=== PATIENT | male | born 1985 | race African-American/Black ===

== ENCOUNTER 2019-04-14 01:56 | Inpatient (IN) | payer MEDICAID ==
[~2019-04-14] VITALS: Ht 177.8 cm; Wt 82.8 kg
[~2019-04-14 01:56] MED LIST: ADV250 IH; ALBU17AE27 IH
[2019-04-14] MEDS ORDERED: LORazepam 1 MG TABLET PO PRN (03:15)
[2019-04-14] MEDS ORDERED: ZOLPIDEM TARTRATE 10 MG TABLET PO PRN (03:15)
[2019-04-14 04:50] VITALS: BP 137/71
[2019-04-14 08:22] VITALS: BP 110/45
[2019-04-14] MEDS ORDERED: MAG HYDROX/AL HYDROX/SIMETH ES 30 ML SUSPENSION UDCUP PO PRN ×2 (13:15→15:45)
[2019-04-14] MEDS ORDERED: LOPERAMIDE HCL 2 MG CAPSULE PO PRN ×2 (13:15→15:45)
[2019-04-14] MEDS ORDERED: HydrOXYzine PAMOATE 50 MG CAPSULE PO PRN (13:15)
[2019-04-14] MEDS ORDERED: GuaiFENesin/D-METHORPHAN [SUGAR-FREE] 200-20MG/10 ML SYRUP UDCUP PO PRN ×2 (13:15→15:45)
[2019-04-14] MEDS ORDERED: OLANZapine 5 MG RAPDIS TABLET PO PRN (13:15)
[2019-04-14] MEDS ORDERED: MAGNESIUM HYDROXIDE SUSPENSION 30 ML UDCUP PO PRN ×2 (13:15→15:45)
[2019-04-14] MEDS ORDERED: ACETAMINOPHEN 325 MG TABLET PO PRN ×2 (13:15→15:45)
[2019-04-14] MEDS ORDERED: TUBERCULIN, PURIFIED PROTEIN DERIVATIVE 5 TU/0.1 ML SYRINGE ID ONE (13:15)
[2019-04-14] MEDS ORDERED: PROMETHAZINE HCL 25 MG TABLET PO PRN (13:15)
[2019-04-14] MEDS ORDERED: IBUPROFEN 400 MG TABLET PO PRN (15:45)
[2019-04-14] MEDS ORDERED: DOCUSATE SODIUM 100 MG CAPSULE PO PRN (15:45)
[2019-04-14] MEDS ORDERED: PETROLATUM,WHITE 28 GM JELLY TP PRN (15:45)
[2019-04-14] MEDS ORDERED: ALBUTEROL SULFATE HFA 90 MCG/PUFF 8 GM INHALER IH PRN (15:45)
[2019-04-14] MEDS ORDERED: CloNIDine HCL 0.1 MG TABLET PO PRN (15:45)
[2019-04-14] MEDS ORDERED: ONDANSETRON HCL 4 MG TABLET PO PRN (15:45)
[2019-04-14] MEDS ORDERED: NICOTINE 14 MG/24 HOUR PATCH TD PRN (15:45)
[2019-04-14 16:04] VITALS: BP 122/61
[2019-04-14] MEDS: THIAMINE HCL 100 MG TABLET PO SCH (17:38)
[2019-04-14] MEDS ORDERED: THIA100T75 PO (19:03)
[2019-04-14] MEDS ORDERED: FOLI0.4T14 PO (19:03)
[2019-04-14] MEDS ORDERED: OLAN10TA6 PO (19:03)
[2019-04-14] MEDS ORDERED: MULT-723 PO (19:03)
[2019-04-14] MEDS ORDERED: FLUO-191 PO (19:03)
[2019-04-14] MEDS ORDERED: OLANZapine 5 MG RAPDIS TABLET PO SCH (21:00)
[2019-04-15 06:18] VITALS: BP 120/64
[2019-04-15 07:58] LABS: EOSINOPHILS % (AUTO) 3.3 % (1.0-6.0); HEMATOCRIT 40.9 % (41-53); HEMOGLOBIN 13.8 g/dL (13.5-17.5); LYMPHOCYTES # (AUTO) 2.5 K/uL (1.0-4.8); LYMPHOCYTES % (AUTO) 57.5 % (22.0-44.0); MEAN CORPUSCULAR HEMOGLOBIN 27.7 pg (26.0-34.0); MEAN CORPUSCULAR HGB CONC 33.6 G/dL (31.0-37.0); MEAN CORPUSCULAR VOLUME 82 fL (80-100); MONOCYTES # (AUTO) 0.5 K/uL (0.1-1.0); MONOCYTES % (AUTO) 12.3 % (2.0-9.0); NEUTROPHILS # (AUTO) 1.1 K/uL (1.8-7.7); NEUTROPHILS % (AUTO) 25.9 % (40.0-70.0); PLATELET COUNT (AUTO) 245 K/uL (150-450); RED BLOOD CELL COUNT(AUTO) 4.97 MIL/uL (4.50-5.90); RED CELL DISTRIBUTION WIDTH 15.8 % (11.5-14.5)
[2019-04-15 08:04] VITALS: BP 140/88
[2019-04-15 08:18] LABS: ALANINE AMINOTRANSFERASE 23 U/L (12-78); ALBUMIN 3.2 g/dL (3.4-5.0); ALKALINE PHOSPHATASE 70 U/L (46-116); ANION GAP 5 mmol/L (8-16); ASPARTATE AMINOTRANSFERASE 20 U/L (15-37); BILIRUBIN,TOTAL 0.2 mg/dL (0.1-1.0); CALCIUM, TOTAL 9.1 mg/dL (8.8-10.5); CARBON DIOXIDE 28 mmol/L (22-29); CHLORIDE 107 mmol/L (98-107); CHOL/HDL RATIO 2.4 (4.2-7.3); CHOLESTEROL 114 mg/dL (131-200); CREATININE 0.85 mg/dL (0.60-1.30); FREE T4 (FREE THYROXINE) 1.04 ng/dL (0.76-1.46); GLOMERULAR FILTR. RATE CALC > 60 mL/min (>60); GLUCOSE,RANDOM 107 mg/dL (70-110); HDL CHOLESTEROL 47 mg/dL (40-60); LDL CHOL (CALC.) 53 mg/dL (0-130); POTASSIUM 4.1 mmol/L (3.5-5.1); SODIUM SERUM 140 mmol/L (136-145); THYROID STIMULATING HORMONE 0.37 uIU/mL (0.36-3.74); TOTAL PROTEIN, SERUM 6.5 g/dL (6.4-8.2); TRIGLYCERIDES 69 mg/dL (15-150); UREA NITROGEN, BLOOD 10 mg/dL (7-18)
[2019-04-15] MEDS: FLUTICASONE/VILANTEROL 100-25 MCG/INH INHALER [14] IH SCH (08:24)
[2019-04-15] MEDS: FLUoxetine HCL 20 MG CAPSULE PO SCH (08:24)
[2019-04-15] MEDS: THIAMINE HCL 100 MG TABLET PO SCH ×2 (08:24→16:32)
[2019-04-15] MEDS: FOLIC ACID 1 MG TABLET PO SCH (08:24)
[2019-04-15] MEDS: MULTIVITAMINS WITH MINERALS, THERAPEUTIC TABLET PO SCH (08:24)
[2019-04-15 16:21] VITALS: BP 142/60
[2019-04-15] MEDS: OLANZapine 10 MG RAPDIS TABLET PO SCH (20:17)
[2019-04-16 06:20] VITALS: BP 124/79
[2019-04-16 08:33] VITALS: BP 139/64
[2019-04-16] MEDS: MULTIVITAMINS WITH MINERALS, THERAPEUTIC TABLET PO SCH (08:51)
[2019-04-16] MEDS: FOLIC ACID 1 MG TABLET PO SCH (08:51)
[2019-04-16] MEDS: FLUTICASONE/VILANTEROL 100-25 MCG/INH INHALER [14] IH SCH (08:51)
[2019-04-16] MEDS: THIAMINE HCL 100 MG TABLET PO SCH ×2 (08:51→16:59)
[2019-04-16] MEDS: FLUoxetine HCL 20 MG CAPSULE PO SCH (08:52)
[2019-04-16 16:10] VITALS: BP 142/84
[2019-04-16] MEDS: OLANZapine 10 MG RAPDIS TABLET PO SCH (21:00)
[2019-04-17 04:25] VITALS: BP 136/69
[2019-04-17] MEDS: FLUoxetine HCL 20 MG CAPSULE PO SCH (09:23)
[2019-04-17] MEDS: THIAMINE HCL 100 MG TABLET PO SCH ×2 (09:23→16:09)
[2019-04-17] MEDS: MULTIVITAMINS WITH MINERALS, THERAPEUTIC TABLET PO SCH (09:23)
[2019-04-17] MEDS: FOLIC ACID 1 MG TABLET PO SCH (09:23)
[2019-04-17] MEDS: FLUTICASONE/VILANTEROL 100-25 MCG/INH INHALER [14] IH SCH (09:30)
[2019-04-17 10:58] VITALS: BP 131/66
[2019-04-17] MEDS ORDERED: ALBU8HFA IH (15:35)
[2019-04-17] MEDS ORDERED: OLAN5TAB40 PO (15:35)
[2019-04-17 16:05] VITALS: BP 137/75
[2019-04-17] MEDS: OLANZapine 5 MG RAPDIS TABLET PO SCH (20:42)
[2019-04-18 06:15] VITALS: BP 121/76
[2019-04-18 08:33] VITALS: BP 109/66
[2019-04-18] MEDS: FLUTICASONE/VILANTEROL 100-25 MCG/INH INHALER [14] IH SCH (08:46)
[2019-04-18] MEDS: THIAMINE HCL 100 MG TABLET PO SCH ×2 (08:47→16:09)
[2019-04-18] MEDS: MULTIVITAMINS WITH MINERALS, THERAPEUTIC TABLET PO SCH (08:47)
[2019-04-18] MEDS: FLUoxetine HCL 20 MG CAPSULE PO SCH (08:47)
[2019-04-18] MEDS: FOLIC ACID 1 MG TABLET PO SCH (08:47)
[2019-04-18 15:59] VITALS: BP 133/79
[2019-04-18 16:05] VITALS: BP 133/79
[2019-04-18] MEDS: OLANZapine 5 MG RAPDIS TABLET PO SCH (20:07)
[2019-04-19 06:11] VITALS: BP 122/75
[2019-04-19] MEDS: FLUTICASONE/VILANTEROL 100-25 MCG/INH INHALER [14] IH SCH (08:36)
[2019-04-19 08:37] VITALS: BP 140/65
[2019-04-19] MEDS: FLUoxetine HCL 20 MG CAPSULE PO SCH (08:37)
[2019-04-19] MEDS: FOLIC ACID 1 MG TABLET PO SCH (08:37)
[2019-04-19] MEDS: THIAMINE HCL 100 MG TABLET PO SCH ×2 (08:37→16:53)
[2019-04-19] MEDS: MULTIVITAMINS WITH MINERALS, THERAPEUTIC TABLET PO SCH (08:37)
[2019-04-19 16:00] VITALS: BP 128/72
[2019-04-19] MEDS: OLANZapine 5 MG RAPDIS TABLET PO SCH (20:37)
[2019-04-20 04:52] VITALS: BP 134/79
[2019-04-20 08:00] VITALS: BP 122/70
[2019-04-20] MEDS: MULTIVITAMINS WITH MINERALS, THERAPEUTIC TABLET PO SCH (08:57)
[2019-04-20] MEDS: FLUTICASONE/VILANTEROL 100-25 MCG/INH INHALER [14] IH SCH (08:57)
[2019-04-20] MEDS: THIAMINE HCL 100 MG TABLET PO SCH ×2 (08:57→16:43)
[2019-04-20] MEDS: FOLIC ACID 1 MG TABLET PO SCH (08:57)
[2019-04-20] MEDS: FLUoxetine HCL 20 MG CAPSULE PO SCH (09:02)
[2019-04-20 16:05] VITALS: BP 141/91
[2019-04-20] MEDS: OLANZapine 5 MG RAPDIS TABLET PO SCH (20:18)
[2019-04-21 02:18] VITALS: BP 129/89
[2019-04-21 08:15] VITALS: BP 124/83
[2019-04-21] MEDS: THIAMINE HCL 100 MG TABLET PO SCH ×2 (08:34→16:07)
[2019-04-21] MEDS: FOLIC ACID 1 MG TABLET PO SCH (08:34)
[2019-04-21] MEDS: MULTIVITAMINS WITH MINERALS, THERAPEUTIC TABLET PO SCH (08:34)
[2019-04-21] MEDS: FLUTICASONE/VILANTEROL 100-25 MCG/INH INHALER [14] IH SCH (08:36)
[2019-04-21] MEDS: FLUoxetine HCL 20 MG CAPSULE PO SCH (08:40)
[2019-04-21 16:00] VITALS: BP 135/67
[2019-04-21] MEDS ORDERED: TUBERCULIN, PURIFIED PROTEIN DERIVATIVE 5 TU/0.1 ML SYRINGE ID ONE (16:15)
[2019-04-21] MEDS ORDERED: OLANZapine 10 MG RAPDIS TABLET PO SCH (21:00)
[2019-04-22 01:32] VITALS: BP 138/90
[2019-04-22 08:39] VITALS: BP 130/80
[2019-04-22] MEDS: THIAMINE HCL 100 MG TABLET PO SCH (08:48)
[2019-04-22] MEDS: FLUoxetine HCL 20 MG CAPSULE PO SCH (08:48)
[2019-04-22] MEDS: FOLIC ACID 1 MG TABLET PO SCH (08:48)
[2019-04-22] MEDS: MULTIVITAMINS WITH MINERALS, THERAPEUTIC TABLET PO SCH (08:48)
[2019-04-22] MEDS: FLUTICASONE/VILANTEROL 100-25 MCG/INH INHALER [14] IH SCH (09:00)
[2019-04-22] MEDS ORDERED: FLUO-191 PO (13:44)
[2019-04-22] MEDS ORDERED: OLAN10TA22 PO (13:44)
[2019-04-22] MEDS ORDERED: NALT50TA PO (13:44)
[2019-04-22] MEDS ORDERED: FLUT1AER IH (14:28)
[2019-04-23] MEDS ORDERED: NALTREXONE HCL 50 MG TABLET PO SCH (09:00)
== END 2019-04-22 15:20 | disposition home or self-care (01) | DRG 750 ==
LOC: B3A 04:10
PROVIDERS: ADMIT Psychiatry & Neurology Psychiatry; ATTEND Psychiatry & Neurology Psychiatry
DX: F25.9 Schizoaffective disorder, unspecified (principal); Z91.19 Patient's noncompliance with other medical treatment and regimen; D72.819 Decreased white blood cell count, unspecified; F10.10 Alcohol abuse, uncomplicated; F17.210 Nicotine dependence, cigarettes, uncomplicated; F60.0 Paranoid personality disorder; J45.909 Unspecified asthma, uncomplicated
CPT/HCPCS: 83036; 84439; 84443; 86592

== ENCOUNTER 2019-05-01 17:40 | Inpatient (IN) | payer MEDICAID ==
[~2019-05-01] VITALS: Ht 177.8 cm; Wt 82.0 kg
[~2019-05-01 17:40] MED LIST changes: -ADV250 IH; -ALBU17AE27 IH; +FLUO-191 PO; +FLUT1AER IH; +NALT50TA PO; +OLAN10TA22 PO
[2019-05-02] MEDS ORDERED: LORazepam 2 MG TABLET PO PRN (00:45)
[2019-05-02] MEDS ORDERED: QUEtiapine FUMARATE 100 MG TABLET PO PRN (00:45)
[2019-05-02] MEDS ORDERED: ZOLPIDEM TARTRATE 10 MG TABLET PO PRN (00:45)
[2019-05-02 01:38] VITALS: BP 150/93
[2019-05-02] MEDS ORDERED: INFLUENZA VIRUS VACCINE QVS 2019-20 (3YR+)/PF 60 MCG/0.5 ML SYRINGE IM ONE (04:15)
[2019-05-02 08:30] VITALS: BP 149/89
[2019-05-02] MEDS ORDERED: ACETAMINOPHEN 325 MG TABLET PO PRN (15:00)
[2019-05-02] MEDS ORDERED: PETROLATUM,WHITE 28 GM JELLY TP PRN (15:00)
[2019-05-02] MEDS ORDERED: ONDANSETRON HCL 4 MG TABLET PO PRN (15:00)
[2019-05-02] MEDS ORDERED: MAG HYDROX/AL HYDROX/SIMETH ES 30 ML SUSPENSION UDCUP PO PRN (15:00)
[2019-05-02] MEDS ORDERED: NICOTINE 14 MG/24 HOUR PATCH TD PRN (15:00)
[2019-05-02] MEDS ORDERED: CloNIDine HCL 0.1 MG TABLET PO PRN (15:00)
[2019-05-02] MEDS ORDERED: ALBUTEROL SULFATE HFA 90 MCG/PUFF 8 GM INHALER IH PRN (15:00)
[2019-05-02] MEDS ORDERED: MAGNESIUM HYDROXIDE SUSPENSION 30 ML UDCUP PO PRN (15:00)
[2019-05-02] MEDS ORDERED: DOCUSATE SODIUM 100 MG CAPSULE PO PRN (15:00)
[2019-05-02] MEDS ORDERED: GuaiFENesin/D-METHORPHAN [SUGAR-FREE] 200-20MG/10 ML SYRUP UDCUP PO PRN (15:00)
[2019-05-02] MEDS ORDERED: LOPERAMIDE HCL 2 MG CAPSULE PO PRN (15:00)
[2019-05-02] MEDS ORDERED: IBUPROFEN 400 MG TABLET PO PRN (15:00)
[2019-05-02 16:00] VITALS: BP 136/66
[2019-05-03 06:44] VITALS: BP 118/62
[2019-05-03] MEDS: FLUoxetine HCL 20 MG CAPSULE PO SCH (08:58)
[2019-05-03] MEDS: FLUTICASONE/VILANTEROL 100-25 MCG/INH INHALER [14] IH SCH (08:59)
[2019-05-03 12:10] VITALS: BP 134/60
[2019-05-03 16:37] VITALS: BP 137/90
[2019-05-03] MEDS ORDERED: OLANZapine 10 MG TABLET PO SCH (21:00)
[2019-05-04 06:31] VITALS: BP 143/64
[2019-05-04] MEDS: FLUoxetine HCL 20 MG CAPSULE PO SCH (08:13)
[2019-05-04] MEDS: FLUTICASONE/VILANTEROL 100-25 MCG/INH INHALER [14] IH SCH (09:00)
[2019-05-04 09:06] VITALS: BP 139/69
[2019-05-04 16:06] VITALS: BP 137/74
[2019-05-04] MEDS: OLANZapine 7.5 MG TABLET PO SCH (20:18)
[2019-05-05 05:56] VITALS: BP 116/60
[2019-05-05 08:28] VITALS: BP 135/74
[2019-05-05] MEDS: FLUoxetine HCL 20 MG CAPSULE PO SCH (08:47)
[2019-05-05] MEDS: FLUTICASONE/VILANTEROL 100-25 MCG/INH INHALER [14] IH SCH (08:48)
[2019-05-05 16:05] VITALS: BP 130/66
[2019-05-05] MEDS: OLANZapine 7.5 MG TABLET PO SCH (20:26)
[2019-05-06 00:30] VITALS: BP 118/43
[2019-05-06] MEDS: FLUTICASONE/VILANTEROL 100-25 MCG/INH INHALER [14] IH SCH (08:34)
[2019-05-06] MEDS: FLUoxetine HCL 20 MG CAPSULE PO SCH (08:35)
[2019-05-06 08:57] VITALS: BP 132/66
[2019-05-06] MEDS ORDERED: TUBERCULIN, PURIFIED PROTEIN DERIVATIVE 5 TU/0.1 ML SYRINGE ID ONE (15:00)
[2019-05-06] MEDS ORDERED: FLUO-191 PO (18:05)
[2019-05-06] MEDS ORDERED: OLAN7.5T2 PO (18:05)
[2019-05-06 18:39] VITALS: BP 128/77
== END 2019-05-06 19:15 | disposition home or self-care (01) | DRG 750 ==
LOC: B2S 05-02 01:02
PROVIDERS: ADMIT Psychiatry & Neurology Psychiatry; ATTEND Psychiatry & Neurology Psychiatry
DX: F25.0 Schizoaffective disorder, bipolar type (principal); R45.851 Suicidal ideations; Z59.0 Homelessness; F10.10 Alcohol abuse, uncomplicated; F41.9 Anxiety disorder, unspecified; J44.9 Chronic obstructive pulmonary disease, unspecified; F19.10 Other psychoactive substance abuse, uncomplicated; Z56.0 Unemployment, unspecified
CPT/HCPCS: 87081

== ENCOUNTER 2019-05-15 10:28 | Inpatient (IN) | payer MEDICAID ==
[~2019-05-15] VITALS: Ht 177.8 cm; Wt 83.5 kg
[~2019-05-15 10:28] MED LIST changes: -FLUT1AER IH; -NALT50TA PO; -OLAN10TA22 PO; +OLAN7.5T2 PO
[2019-05-15 13:46] VITALS: BP 125/71
[2019-05-15 16:00] VITALS: BP 130/65
[2019-05-15] MEDS ORDERED: ZOLPIDEM TARTRATE 10 MG TABLET PO PRN (19:45)
[2019-05-15] MEDS ORDERED: LORazepam 2 MG TABLET PO PRN (19:45)
[2019-05-15] MEDS ORDERED: HALOPERIDOL 5 MG TABLET PO PRN (19:45)
[2019-05-16 04:02] VITALS: BP 144/72
[2019-05-16 08:43] VITALS: BP 144/81
[2019-05-16 16:30] VITALS: BP 133/99
[2019-05-16] MEDS: FLUoxetine HCL 20 MG CAPSULE PO SCH (20:06)
[2019-05-16] MEDS: OLANZapine 5 MG TABLET PO SCH (20:06)
[2019-05-17 05:36] VITALS: BP 138/91
[2019-05-17 08:13] VITALS: BP 134/63
[2019-05-17] MEDS: FLUoxetine HCL 20 MG CAPSULE PO SCH (09:00)
[2019-05-17] MEDS: OLANZapine 5 MG TABLET PO SCH (21:00)
[2019-05-18 00:18] VITALS: BP 123/91
[2019-05-18 07:29] LABS: BASOPHILS % (AUTO) 0.9 % (0.0-2.0); EOSINOPHILS % (AUTO) 2.5 % (1.0-6.0); HEMATOCRIT 41.6 % (41-53); HEMOGLOBIN 14.2 g/dL (13.5-17.5); LYMPHOCYTES # (AUTO) 2.9 K/uL (1.0-4.8); LYMPHOCYTES % (AUTO) 50.1 % (22.0-44.0); MEAN CORPUSCULAR HEMOGLOBIN 27.9 pg (26.0-34.0); MEAN CORPUSCULAR HGB CONC 34.3 G/dL (31.0-37.0); MEAN CORPUSCULAR VOLUME 82 fL (80-100); MONOCYTES # (AUTO) 0.5 K/uL (0.1-1.0); MONOCYTES % (AUTO) 9.3 % (2.0-9.0); NEUTROPHILS # (AUTO) 2.1 K/uL (1.8-7.7); NEUTROPHILS % (AUTO) 37.2 % (40.0-70.0); PLATELET COUNT (AUTO) 264 K/uL (150-450); RED CELL DISTRIBUTION WIDTH 16.2 % (11.5-14.5)
[2019-05-18 07:39] LABS: HEMOGLOBIN A1C 6.1 % (3.8-5.6)
[2019-05-18 07:56] LABS: ALANINE AMINOTRANSFERASE 61 U/L (12-78); ALBUMIN 3.6 g/dL (3.4-5.0); ALKALINE PHOSPHATASE 72 U/L (46-116); ANION GAP 8 mmol/L (8-16); ASPARTATE AMINOTRANSFERASE 37 U/L (15-37); BILIRUBIN,TOTAL 0.1 mg/dL (0.1-1.0); CARBON DIOXIDE 28 mmol/L (22-29); CHLORIDE 103 mmol/L (98-107); CHOL/HDL RATIO 2.7 (4.2-7.3); CHOLESTEROL 141 mg/dL (131-200); CREATININE 0.86 mg/dL (0.60-1.30); FREE T4 (FREE THYROXINE) 1.07 ng/dL (0.76-1.46); GLOMERULAR FILTR. RATE CALC > 60 mL/min (>60); GLUCOSE,RANDOM 88 mg/dL (70-110); HDL CHOLESTEROL 52 mg/dL (40-60); LDL CHOL (CALC.) 72 mg/dL (0-130); POTASSIUM 4.3 mmol/L (3.5-5.1); SODIUM SERUM 139 mmol/L (136-145); TOTAL PROTEIN, SERUM 6.6 g/dL (6.4-8.2); TRIGLYCERIDES 86 mg/dL (15-150); UREA NITROGEN, BLOOD 15 mg/dL (7-18)
[2019-05-18 08:00] VITALS: BP 131/72
[2019-05-18] MEDS: FLUoxetine HCL 20 MG CAPSULE PO SCH (09:00)
[2019-05-18 16:33] VITALS: BP 140/68
[2019-05-18] MEDS ORDERED: LOPERAMIDE HCL 2 MG CAPSULE PO PRN (20:00)
[2019-05-18] MEDS ORDERED: ACETAMINOPHEN 325 MG TABLET PO PRN (20:00)
[2019-05-18] MEDS ORDERED: OLANZapine 5 MG RAPDIS TABLET PO PRN (20:00)
[2019-05-18] MEDS ORDERED: TUBERCULIN, PURIFIED PROTEIN DERIVATIVE 5 TU/0.1 ML SYRINGE ID ONE (20:00)
[2019-05-18] MEDS ORDERED: MAGNESIUM HYDROXIDE SUSPENSION 30 ML UDCUP PO PRN (20:00)
[2019-05-18] MEDS ORDERED: MAG HYDROX/AL HYDROX/SIMETH ES 30 ML SUSPENSION UDCUP PO PRN (20:00)
[2019-05-18] MEDS ORDERED: GuaiFENesin/D-METHORPHAN [SUGAR-FREE] 200-20MG/10 ML SYRUP UDCUP PO PRN (20:00)
[2019-05-18] MEDS ORDERED: HydrOXYzine PAMOATE 50 MG CAPSULE PO PRN (20:00)
[2019-05-18] MEDS ORDERED: PROMETHAZINE HCL 25 MG TABLET PO PRN (20:00)
[2019-05-18] MEDS: OLANZapine 5 MG TABLET PO SCH (20:16)
[2019-05-19 01:21] VITALS: BP 139/79
[2019-05-19 08:11] VITALS: BP 131/68
[2019-05-19] MEDS: FLUoxetine HCL 20 MG CAPSULE PO SCH (08:54)
[2019-05-19] MEDS: MULTIVITAMINS WITH MINERALS, THERAPEUTIC TABLET PO SCH (08:54)
[2019-05-19] MEDS: THIAMINE HCL 100 MG TABLET PO SCH ×2 (08:54→16:13)
[2019-05-19] MEDS: FOLIC ACID 1 MG TABLET PO SCH (08:54)
[2019-05-19 16:12] VITALS: BP 141/84
[2019-05-19] MEDS ORDERED: OLANZapine 7.5 MG TABLET PO SCH (21:00)
[2019-05-20 00:25] VITALS: BP 146/79
[2019-05-20 08:48] VITALS: BP 151/84
[2019-05-20] MEDS: FOLIC ACID 1 MG TABLET PO SCH (09:00)
[2019-05-20] MEDS: MULTIVITAMINS WITH MINERALS, THERAPEUTIC TABLET PO SCH (09:00)
[2019-05-20] MEDS: THIAMINE HCL 100 MG TABLET PO SCH ×2 (09:00→16:19)
[2019-05-20] MEDS: FLUoxetine HCL 20 MG CAPSULE PO SCH (09:00)
[2019-05-20 16:12] VITALS: BP 129/77
[2019-05-20] MEDS: OLANZapine 10 MG TABLET PO SCH (20:33)
[2019-05-21 00:32] VITALS: BP 128/62
[2019-05-21] MEDS: MULTIVITAMINS WITH MINERALS, THERAPEUTIC TABLET PO SCH (08:43)
[2019-05-21] MEDS: FOLIC ACID 1 MG TABLET PO SCH (08:44)
[2019-05-21] MEDS: THIAMINE HCL 100 MG TABLET PO SCH ×2 (08:44→16:02)
[2019-05-21] MEDS: FLUoxetine HCL 20 MG CAPSULE PO SCH (08:44)
[2019-05-21] MEDS ORDERED: BuPROPion HCL XL 150 MG ER TABLET PO SCH (09:00)
[2019-05-21 09:22] VITALS: BP 140/83
[2019-05-21 17:40] VITALS: BP 157/80
[2019-05-21] MEDS: AmLODIPine BESYLATE 5 MG TABLET PO SCH (18:13)
[2019-05-21 18:45] VITALS: BP 136/79
[2019-05-21 19:26] VITALS: BP 136/79
[2019-05-21] MEDS: OLANZapine 10 MG TABLET PO SCH (20:28)
[2019-05-22 03:40] VITALS: BP 106/57
[2019-05-22] MEDS ORDERED: AMLO5TAB9 PO (07:40)
[2019-05-22] MEDS ORDERED: OLAN10TA3 PO (07:40)
[2019-05-22 08:10] VITALS: BP 138/76
[2019-05-22] MEDS ORDERED: POTASSIUM CHLORIDE 20 MEQ ER TABLET PO ONE (08:45)
[2019-05-22] MEDS: AmLODIPine BESYLATE 5 MG TABLET PO SCH (08:46)
[2019-05-22] MEDS: FOLIC ACID 1 MG TABLET PO SCH (08:46)
[2019-05-22] MEDS: MULTIVITAMINS WITH MINERALS, THERAPEUTIC TABLET PO SCH (08:47)
[2019-05-22] MEDS: THIAMINE HCL 100 MG TABLET PO SCH (08:47)
[2019-05-22] MEDS ORDERED: FLUoxetine HCL 20 MG CAPSULE PO SCH (09:00)
[2019-05-22] MEDS ORDERED: FLUO-191 PO (09:38)
[2019-05-22] MEDS ORDERED: NALT50TA PO (14:27)
== END 2019-05-22 15:10 | disposition home or self-care (01) | DRG 750 ==
LOC: B3A 13:02 → B2S 19:00
PROVIDERS: ADMIT Psychiatry & Neurology Psychiatry; ATTEND Psychiatry & Neurology Psychiatry
DX: F25.0 Schizoaffective disorder, bipolar type (principal); R45.851 Suicidal ideations; Z59.0 Homelessness; J44.9 Chronic obstructive pulmonary disease, unspecified; K21.9 Gastro-esophageal reflux disease without esophagitis; Z91.14 Patient's other noncompliance with medication regimen; Z88.0 Allergy status to penicillin; Z88.5 Allergy status to narcotic agent
CPT/HCPCS: 83036; 84439; 84443; 87081; 93005

== ENCOUNTER 2019-09-16 18:15 | Inpatient (IN) | payer MEDICAID ==
[~2019-09-16] VITALS: Ht 177.8 cm; Wt 108.0 kg
[~2019-09-16 18:15] MED LIST changes: +AMLO-257 PO; +NALT50TA PO; +OLAN10TA3 PO; -OLAN7.5T2 PO
[2019-09-16] MEDS ORDERED: LISI-661 PO (18:21)
[2019-09-16] MEDS ORDERED: HALOPERIDOL 5 MG TABLET PO PRN (18:45)
[2019-09-16] MEDS ORDERED: ZOLPIDEM TARTRATE 10 MG TABLET PO PRN (18:45)
[2019-09-16] MEDS ORDERED: LORazepam 2 MG TABLET PO PRN (18:45)
[2019-09-16 18:47] VITALS: BP 131/85
[2019-09-16 19:22] VITALS: BP 140/86
[2019-09-16] MEDS ORDERED: PNEUMOCOCCAL VACCINE POLYVALENT 0.5 ML VIAL [PPSV23] IM ONE (19:45)
[2019-09-16 20:46] VITALS: BP 146/96
[2019-09-17 01:12] VITALS: BP 156/89
[2019-09-17] MEDS ORDERED: IBUPROFEN 600 MG TABLET PO PRN (06:15)
[2019-09-17] MEDS ORDERED: BACITRACIN 28.4 GM OINTMENT TP PRN (06:15)
[2019-09-17] MEDS ORDERED: DOCUSATE SODIUM 100 MG CAPSULE PO PRN (06:15)
[2019-09-17] MEDS ORDERED: ALBUTEROL SULFATE HFA 90 MCG/PUFF 8 GM INHALER IH PRN (06:15)
[2019-09-17] MEDS ORDERED: OMEPRAZOLE 20 MG CAPSULE PO PRN (06:15)
[2019-09-17] MEDS ORDERED: ONDANSETRON HCL 4 MG TABLET PO PRN (06:15)
[2019-09-17] MEDS ORDERED: ACETAMINOPHEN 325 MG TABLET PO PRN (06:15)
[2019-09-17] MEDS ORDERED: BENZOCAINE/MENTHOL LOZENGE MM PRN (06:15)
[2019-09-17] MEDS ORDERED: LOPERAMIDE HCL 2 MG CAPSULE PO PRN (06:15)
[2019-09-17] MEDS ORDERED: MAG HYDROX/AL HYDROX/SIMETH ES 30 ML SUSPENSION UDCUP PO PRN (06:15)
[2019-09-17] MEDS ORDERED: CloNIDine HCL 0.1 MG TABLET PO PRN (06:15)
[2019-09-17] MEDS ORDERED: PETROLATUM,WHITE 28 GM JELLY TP PRN (06:15)
[2019-09-17] MEDS ORDERED: MAGNESIUM HYDROXIDE SUSPENSION 30 ML UDCUP PO PRN (06:15)
[2019-09-17 08:00] LABS: BASOPHILS % (AUTO) 0.5 % (0.0-2.0); EOSINOPHILS % (AUTO) 0.1 % (1.0-6.0); HEMATOCRIT 41.5 % (41-53); HEMOGLOBIN 14.5 g/dL (13.5-17.5); LYMPHOCYTES # (AUTO) 2.2 K/uL (1.0-4.8); LYMPHOCYTES % (AUTO) 26.8 % (22.0-44.0); MEAN CORPUSCULAR HEMOGLOBIN 28.3 pg (26.0-34.0); MEAN CORPUSCULAR HGB CONC 34.9 G/dL (31.0-37.0); MEAN CORPUSCULAR VOLUME 81 fL (80-100); MONOCYTES # (AUTO) 0.6 K/uL (0.1-1.0); MONOCYTES % (AUTO) 6.9 % (2.0-9.0); NEUTROPHILS # (AUTO) 5.4 K/uL (1.8-7.7); NEUTROPHILS % (AUTO) 65.7 % (40.0-70.0); PLATELET COUNT (AUTO) 257 K/uL (150-450); RED BLOOD CELL COUNT(AUTO) 5.12 MIL/uL (4.50-5.90); RED CELL DISTRIBUTION WIDTH 16.5 % (11.5-14.5)
[2019-09-17 08:27] LABS: ALANINE AMINOTRANSFERASE 71 U/L (12-78); ALBUMIN 5.2 g/dL (3.4-5.0); ALKALINE PHOSPHATASE 58 U/L (46-116); ANION GAP 12 mmol/L (8-16); ASPARTATE AMINOTRANSFERASE 86 U/L (15-37); BILIRUBIN,TOTAL 0.6 mg/dL (0.1-1.0); CALCIUM, TOTAL 10.2 mg/dL (8.8-10.5); CARBON DIOXIDE 28 mmol/L (22-29); CHLORIDE 99 mmol/L (98-107); CHOL/HDL RATIO 2.6 (4.2-7.3); CHOLESTEROL 200 mg/dL (131-200); CREATININE 1.24 mg/dL (0.60-1.30); FREE T4 (FREE THYROXINE) 1.16 ng/dL (0.76-1.46); GLOMERULAR FILTR. RATE CALC > 60 mL/min (>60); GLUCOSE,RANDOM 107 mg/dL (70-110); HDL CHOLESTEROL 78 mg/dL (40-60); LDL CHOL (CALC.) 114 mg/dL (0-130); POTASSIUM 4.8 mmol/L (3.5-5.1); SODIUM SERUM 139 mmol/L (136-145); THYROID STIMULATING HORMONE 1.53 uIU/mL (0.36-3.74); TOTAL PROTEIN, SERUM 9.3 g/dL (6.4-8.2); TRIGLYCERIDES 41 mg/dL (15-150); UREA NITROGEN, BLOOD 23 mg/dL (7-18)
[2019-09-17] MEDS ORDERED: LISINOPRIL 20 MG TABLET PO SCH (09:00)
[2019-09-17] MEDS ORDERED: AmLODIPine BESYLATE 5 MG TABLET PO SCH (09:00)
[2019-09-17] MEDS ORDERED: LISINOPRIL 10 MG TABLET PO SCH (09:00)
[2019-09-17 09:49] VITALS: BP 129/101
[2019-09-17 16:09] VITALS: BP 132/74
[2019-09-17] MEDS: OLANZapine 10 MG TABLET PO SCH (20:05)
[2019-09-18 00:41] VITALS: BP 133/80
[2019-09-18 08:04] LABS: AMPHET/METH SCREEN,URINE POSITIVE (NEGATIVE); APPEARANCE,URINE TURBID (CLEAR); BARBITURATE SCREEN, URINE NEGATIVE (NEGATIVE); BENZODIAZEPINES SCREEN,URINE NEGATIVE (NEGATIVE); BILIRUBIN,URINE NEGATIVE (NEGATIVE); CANNABINOID SCREEN,URINE NEGATIVE (NEGATIVE); COCAINE SCREEN,URINE NEGATIVE (NEGATIVE); GLUCOSE, URINE (UA) NEGATIVE (NEGATIVE); KETONES,URINE TRACE mg/dL (NEGATIVE); LEUKOCYTE ESTERASE ,URINE NEGATIVE (NEGATIVE); METHADONE SCREEN, URINE NEGATIVE (NEGATIVE); NITRATE,URINE NEGATIVE (NEGATIVE); OCCULT BLOOD,URINE NEGATIVE (NEGATIVE); OPIATE SCREEN,URINE NEGATIVE (NEGATIVE); PH,URINE 5.5 (5.0-8.0); PROTEIN,URINE TRACE (NEGATIVE); UROBILINOGEN,URINE 0.2 mg/dL (<=1.0)
[2019-09-18 08:10] VITALS: BP 142/69
[2019-09-18 08:11] LABS: PHENCYCLIDINE SCREEN,URINE NEGATIVE (NEGATIVE)
[2019-09-18 08:16] LABS: AMORPHOUS SEDIMENT,UR Many /LPF (None Seen); BACTERIA,URINE None Seen /HPF (None Seen); RBC,URINE None Seen /HPF (0-2); SQUAMOUS EPITHELIAL CELL,UR None Seen /LPF (None Seen); WBC,URINE None Seen /HPF (0-5)
[2019-09-18] MEDS: METOPROLOL TARTRATE 25 MG TABLET PO SCH ×2 (08:25→16:34)
[2019-09-18] MEDS: LISINOPRIL 10 MG TABLET PO SCH (08:25)
[2019-09-18 16:32] VITALS: BP 112/63
[2019-09-18] MEDS: OLANZapine 10 MG TABLET PO SCH (20:09)
[2019-09-19 01:18] VITALS: BP 110/67
[2019-09-19 08:23] VITALS: BP 114/72
[2019-09-19] MEDS: LISINOPRIL 10 MG TABLET PO SCH (08:29)
[2019-09-19] MEDS: METOPROLOL TARTRATE 25 MG TABLET PO SCH ×2 (08:29→16:29)
[2019-09-19 17:31] VITALS: BP 124/72
[2019-09-19] MEDS: OLANZapine 10 MG TABLET PO SCH (20:54)
[2019-09-20 03:48] VITALS: BP 122/68
[2019-09-20] MEDS: LISINOPRIL 10 MG TABLET PO SCH (08:45)
[2019-09-20 09:20] VITALS: BP 128/72
[2019-09-20 17:40] VITALS: BP 120/68
[2019-09-20] MEDS: OLANZapine 10 MG TABLET PO SCH (20:06)
[2019-09-21 02:43] VITALS: BP 140/90
[2019-09-21] MEDS: LISINOPRIL 10 MG TABLET PO SCH (08:05)
[2019-09-21 08:50] VITALS: BP 149/77
== END 2019-09-21 14:16 | disposition home or self-care (01) | DRG 885 ==
LOC: B2S 18:44
PROVIDERS: ADMIT Psychiatry & Neurology Psychiatry; ATTEND Psychiatry & Neurology Psychiatry
DX: F25.9 Schizoaffective disorder, unspecified (principal); R45.851 Suicidal ideations; F15.10 Other stimulant abuse, uncomplicated; G47.00 Insomnia, unspecified; K59.00 Constipation, unspecified; F41.9 Anxiety disorder, unspecified; Z03.818 Encounter for observation for suspected exposure to other biological agents ruled out
CPT/HCPCS: 80307; 83036; 84439; 84443

== ENCOUNTER 2019-10-20 01:25 | Inpatient (IN) | payer MEDICAID ==
[~2019-10-20] VITALS: Ht 177.8 cm; Wt 88.9 kg
[~2019-10-20 01:25] MED LIST changes: -AMLO-257 PO; -FLUO-191 PO; +LISI-661 PO; -NALT50TA PO
[2019-10-20] MEDS ORDERED: HALOPERIDOL 5 MG TABLET PO PRN (01:45)
[2019-10-20] MEDS ORDERED: LORazepam 2 MG TABLET PO PRN (01:45)
[2019-10-20 02:25] VITALS: BP 125/63
[2019-10-20] MEDS ORDERED: MAG HYDROX/AL HYDROX/SIMETH ES 30 ML SUSPENSION UDCUP PO PRN (07:15)
[2019-10-20] MEDS ORDERED: OMEPRAZOLE 20 MG CAPSULE PO PRN (07:15)
[2019-10-20] MEDS ORDERED: MAGNESIUM HYDROXIDE SUSPENSION 30 ML UDCUP PO PRN (07:15)
[2019-10-20] MEDS ORDERED: LOPERAMIDE HCL 2 MG CAPSULE PO PRN (07:15)
[2019-10-20] MEDS ORDERED: ACETAMINOPHEN 325 MG TABLET PO PRN (07:15)
[2019-10-20] MEDS ORDERED: CloNIDine HCL 0.1 MG TABLET PO PRN (07:15)
[2019-10-20] MEDS ORDERED: PETROLATUM,WHITE 28 GM JELLY TP PRN (07:15)
[2019-10-20] MEDS ORDERED: BACITRACIN 28 GM OINTMENT TP PRN (07:15)
[2019-10-20] MEDS ORDERED: ONDANSETRON HCL 4 MG TABLET PO PRN (07:15)
[2019-10-20] MEDS ORDERED: IBUPROFEN 600 MG TABLET PO PRN (07:15)
[2019-10-20] MEDS ORDERED: DOCUSATE SODIUM 100 MG CAPSULE PO PRN (07:15)
[2019-10-20] MEDS ORDERED: ALBUTEROL SULFATE HFA 90 MCG/PUFF 8 GM INHALER IH PRN (07:15)
[2019-10-20] MEDS ORDERED: BENZOCAINE/MENTHOL LOZENGE PO PRN (07:15)
[2019-10-20 08:18] VITALS: BP 115/74
[2019-10-20] MEDS: LISINOPRIL 10 MG TABLET PO SCH (09:34)
[2019-10-20 16:22] VITALS: BP 124/75
[2019-10-20] MEDS: OLANZapine 10 MG TABLET PO SCH (20:35)
[2019-10-20] MEDS: ZOLPIDEM TARTRATE 10 MG TABLET PO PRN (20:35)
[2019-10-21 06:46] VITALS: BP 117/66
[2019-10-21 08:23] VITALS: BP 130/71
[2019-10-21] MEDS: LISINOPRIL 10 MG TABLET PO SCH (08:46)
[2019-10-21] MEDS: CITALOPRAM HYDROBROMIDE 20 MG TABLET PO SCH (08:46)
[2019-10-21 16:27] VITALS: BP 116/69
[2019-10-21] MEDS: ZOLPIDEM TARTRATE 10 MG TABLET PO PRN (20:50)
[2019-10-21] MEDS: OLANZapine 10 MG TABLET PO SCH (20:50)
[2019-10-22 02:32] VITALS: BP 110/70
[2019-10-22 08:40] VITALS: BP 117/70
[2019-10-22] MEDS: CITALOPRAM HYDROBROMIDE 20 MG TABLET PO SCH (08:49)
[2019-10-22] MEDS: LISINOPRIL 10 MG TABLET PO SCH (08:49)
[2019-10-22 09:06] LABS: APPEARANCE,URINE CLEAR (CLEAR); BILIRUBIN,URINE NEGATIVE (NEGATIVE); GLUCOSE, URINE (UA) NEGATIVE (NEGATIVE); KETONES,URINE NEGATIVE (NEGATIVE); LEUKOCYTE ESTERASE ,URINE NEGATIVE (NEGATIVE); NITRATE,URINE NEGATIVE (NEGATIVE); OCCULT BLOOD,URINE NEGATIVE (NEGATIVE); PH,URINE 5.5 (5.0-8.0); PROTEIN,URINE NEGATIVE (NEGATIVE); UROBILINOGEN,URINE 0.2 mg/dL (<=1.0)
[2019-10-22 09:16] LABS: AMPHET/METH SCREEN,URINE NEGATIVE (NEGATIVE); BARBITURATE SCREEN, URINE NEGATIVE (NEGATIVE); BENZODIAZEPINES SCREEN,URINE NEGATIVE (NEGATIVE); CANNABINOID SCREEN,URINE NEGATIVE (NEGATIVE); COCAINE SCREEN,URINE NEGATIVE (NEGATIVE); METHADONE SCREEN, URINE NEGATIVE (NEGATIVE); OPIATE SCREEN,URINE NEGATIVE (NEGATIVE)
[2019-10-22 09:18] LABS: PHENCYCLIDINE SCREEN,URINE NEGATIVE (NEGATIVE)
[2019-10-22 16:14] VITALS: BP 133/70
[2019-10-22] MEDS: ZOLPIDEM TARTRATE 10 MG TABLET PO PRN (20:18)
[2019-10-22] MEDS: OLANZapine 10 MG TABLET PO SCH (20:18)
[2019-10-23 01:36] VITALS: BP 134/93
[2019-10-23 08:18] LABS: BASOPHILS % (AUTO) 0.6 % (0.0-2.0); EOSINOPHILS % (AUTO) 3.3 % (1.0-6.0); HEMATOCRIT 39.7 % (41-53); HEMOGLOBIN 13.2 g/dL (13.5-17.5); LYMPHOCYTES # (AUTO) 2.7 K/uL (1.0-4.8); MEAN CORPUSCULAR HEMOGLOBIN 27.7 pg (26.0-34.0); MEAN CORPUSCULAR HGB CONC 33.2 G/dL (31.0-37.0); MEAN CORPUSCULAR VOLUME 84 fL (80-100); MONOCYTES # (AUTO) 0.6 K/uL (0.1-1.0); MONOCYTES % (AUTO) 10.6 % (2.0-9.0); NEUTROPHILS # (AUTO) 2.1 K/uL (1.8-7.7); NEUTROPHILS % (AUTO) 37.5 % (40.0-70.0); PLATELET COUNT (AUTO) 251 K/uL (150-450); RED BLOOD CELL COUNT(AUTO) 4.74 MIL/uL (4.50-5.90); RED CELL DISTRIBUTION WIDTH 15.6 % (11.5-14.5)
[2019-10-23] MEDS: LISINOPRIL 10 MG TABLET PO SCH (08:49)
[2019-10-23] MEDS: CITALOPRAM HYDROBROMIDE 20 MG TABLET PO SCH (08:49)
[2019-10-23 09:58] LABS: ALANINE AMINOTRANSFERASE 43 U/L (12-78); ALBUMIN 3.4 g/dL (3.4-5.0); ALKALINE PHOSPHATASE 56 U/L (46-116); ANION GAP 7 mmol/L (8-16); ASPARTATE AMINOTRANSFERASE 20 U/L (15-37); BILIRUBIN,TOTAL 0.1 mg/dL (0.1-1.0); CALCIUM, TOTAL 9.1 mg/dL (8.8-10.5); CARBON DIOXIDE 27 mmol/L (22-29); CHLORIDE 105 mmol/L (98-107); CHOL/HDL RATIO 2.6 (4.2-7.3); CHOLESTEROL 155 mg/dL (131-200); CREATININE 1.11 mg/dL (0.60-1.30); FREE T4 (FREE THYROXINE) 1.02 ng/dL (0.76-1.46); GLOMERULAR FILTR. RATE CALC > 60 mL/min (>60); GLUCOSE,RANDOM 148 mg/dL (70-110); HDL CHOLESTEROL 59 mg/dL (40-60); LDL CHOL (CALC.) 81 mg/dL (0-130); POTASSIUM 4.2 mmol/L (3.5-5.1); SODIUM SERUM 139 mmol/L (136-145); THYROID STIMULATING HORMONE 1.34 uIU/mL (0.36-3.74); TOTAL PROTEIN, SERUM 6.6 g/dL (6.4-8.2); TRIGLYCERIDES 75 mg/dL (15-150); UREA NITROGEN, BLOOD 18 mg/dL (7-18)
[2019-10-23 10:36] VITALS: BP 129/77
[2019-10-23 16:59] VITALS: BP 107/73
[2019-10-23] MEDS: OLANZapine 10 MG TABLET PO SCH (20:48)
[2019-10-24 05:49] VITALS: BP 115/71
[2019-10-24] MEDS: CITALOPRAM HYDROBROMIDE 20 MG TABLET PO SCH (08:39)
[2019-10-24] MEDS: LISINOPRIL 10 MG TABLET PO SCH (08:39)
[2019-10-24 09:06] VITALS: BP 114/59
[2019-10-24 17:15] VITALS: BP 138/81
[2019-10-24] MEDS: ZOLPIDEM TARTRATE 10 MG TABLET PO PRN (20:08)
[2019-10-24] MEDS: OLANZapine 10 MG TABLET PO SCH (20:08)
[2019-10-25 06:32] VITALS: BP 100/64
[2019-10-25 08:17] VITALS: BP 134/72
[2019-10-25] MEDS: LISINOPRIL 10 MG TABLET PO SCH (08:50)
[2019-10-25] MEDS: CITALOPRAM HYDROBROMIDE 20 MG TABLET PO SCH (08:50)
[2019-10-25 16:13] VITALS: BP 136/76
[2019-10-25] MEDS: OLANZapine 10 MG TABLET PO SCH (20:15)
[2019-10-26 04:08] VITALS: BP 120/80
[2019-10-26 08:25] VITALS: BP 116/59
[2019-10-26] MEDS: LISINOPRIL 10 MG TABLET PO SCH (08:32)
[2019-10-26] MEDS: CITALOPRAM HYDROBROMIDE 20 MG TABLET PO SCH (08:32)
[2019-10-26] MEDS ORDERED: CITA-144 PO (12:08)
== END 2019-10-26 13:30 | disposition home or self-care (01) | DRG 750 ==
LOC: B3A 01:35
PROVIDERS: ADMIT Psychiatry & Neurology Psychiatry; ATTEND Psychiatry & Neurology Psychiatry
DX: F25.1 Schizoaffective disorder, depressive type (principal); R45.851 Suicidal ideations; Z56.0 Unemployment, unspecified; Z79.899 Other long term (current) drug therapy; F41.9 Anxiety disorder, unspecified; G47.00 Insomnia, unspecified; K59.00 Constipation, unspecified; F19.10 Other psychoactive substance abuse, uncomplicated; Z88.0 Allergy status to penicillin; Z88.5 Allergy status to narcotic agent; F17.200 Nicotine dependence, unspecified, uncomplicated
CPT/HCPCS: 80307; 83036; 84439; 84443; 87081

== ENCOUNTER 2019-11-23 10:45 | Inpatient (IN) | payer MEDICAID ==
[~2019-11-23] VITALS: Ht 177.8 cm; Wt 92.0 kg
[~2019-11-23 10:45] MED LIST changes: +CITA-144 PO
[2019-11-23 17:20] VITALS: BP 127/75
[2019-11-23] MEDS ORDERED: HALOPERIDOL 5 MG TABLET PO PRN (18:00)
[2019-11-23] MEDS ORDERED: LORazepam 2 MG TABLET PO PRN (18:00)
[2019-11-23] MEDS ORDERED: ZOLPIDEM TARTRATE 10 MG TABLET PO PRN (18:00)
[2019-11-23] MEDS ORDERED: PNEUMOCOCCAL VACCINE POLYVALENT 0.5 ML VIAL [PPSV23] IM ONE (19:00)
[2019-11-23] MEDS: OLANZapine 10 MG TABLET PO SCH (20:58)
[2019-11-23] MEDS ORDERED: CloNIDine HCL 0.1 MG TABLET PO PRN (21:00)
[2019-11-23] MEDS ORDERED: IBUPROFEN 600 MG TABLET PO PRN (21:00)
[2019-11-23] MEDS ORDERED: OMEPRAZOLE 20 MG CAPSULE PO PRN (21:00)
[2019-11-23] MEDS ORDERED: DOCUSATE SODIUM 100 MG CAPSULE PO PRN (21:00)
[2019-11-23] MEDS ORDERED: ACETAMINOPHEN 325 MG TABLET PO PRN (21:00)
[2019-11-23] MEDS ORDERED: PETROLATUM,WHITE 28 GM JELLY TP PRN (21:00)
[2019-11-23] MEDS ORDERED: ALBUTEROL SULFATE HFA 90 MCG/PUFF 8 GM INHALER IH PRN (21:00)
[2019-11-23] MEDS ORDERED: BENZOCAINE/MENTHOL LOZENGE PO PRN (21:00)
[2019-11-23] MEDS ORDERED: MAG HYDROX/AL HYDROX/SIMETH ES 30 ML SUSPENSION UDCUP PO PRN (21:00)
[2019-11-23] MEDS ORDERED: ONDANSETRON HCL 4 MG TABLET PO PRN (21:00)
[2019-11-23] MEDS ORDERED: LOPERAMIDE HCL 2 MG CAPSULE PO PRN (21:00)
[2019-11-23] MEDS ORDERED: MAGNESIUM HYDROXIDE SUSPENSION 30 ML UDCUP PO PRN (21:00)
[2019-11-23] MEDS ORDERED: BACITRACIN 28 GM OINTMENT TP PRN (21:00)
[2019-11-24 08:00] VITALS: BP 109/65
[2019-11-24] MEDS ORDERED: INFLUENZA VIRUS VACCINE QVS 2020-21 (6MO+)/PF 60 MCG/0.5 ML SYRINGE IM ONE (09:45)
[2019-11-24] MEDS: LISINOPRIL 10 MG TABLET PO SCH (10:28)
[2019-11-24 16:21] VITALS: BP 118/70
[2019-11-24] MEDS: OLANZapine 10 MG TABLET PO SCH (20:21)
[2019-11-25] MEDS: LISINOPRIL 10 MG TABLET PO SCH (08:06)
[2019-11-25 08:11] VITALS: BP 105/61
[2019-11-25 16:00] VITALS: BP 141/67
[2019-11-25] MEDS: OLANZapine 10 MG TABLET PO SCH (20:32)
[2019-11-26 08:00] VITALS: BP 115/66
[2019-11-26] MEDS: LISINOPRIL 10 MG TABLET PO SCH (08:02)
[2019-11-26 16:05] VITALS: BP 122/66
[2019-11-26] MEDS: OLANZapine 10 MG TABLET PO SCH ×2 (20:22→20:23)
[2019-11-27] MEDS: LISINOPRIL 10 MG TABLET PO SCH (08:57)
[2019-11-27 09:11] VITALS: BP 129/61
[2019-11-27 17:01] VITALS: BP 130/60
[2019-11-27] MEDS: OLANZapine 10 MG TABLET PO SCH (20:09)
[2019-11-28 08:00] VITALS: BP 115/53
[2019-11-28] MEDS: LISINOPRIL 10 MG TABLET PO SCH (08:25)
[2019-11-28 16:00] VITALS: BP 127/65
[2019-11-28] MEDS: OLANZapine 10 MG TABLET PO SCH (20:25)
[2019-11-29] MEDS: LISINOPRIL 10 MG TABLET PO SCH (08:22)
[2019-11-29 08:32] VITALS: BP 134/70
[2019-11-29 16:40] VITALS: BP 120/63
[2019-11-29] MEDS: OLANZapine 10 MG TABLET PO SCH (21:10)
[2019-11-30] MEDS: LISINOPRIL 10 MG TABLET PO SCH (08:23)
[2019-11-30 08:30] VITALS: BP_SYST 106; BP_SYST 127; BP_DIAS 67; BP_DIAS 74
[2019-11-30 16:06] VITALS: BP 120/68
[2019-11-30] MEDS: OLANZapine 10 MG TABLET PO SCH (20:05)
[2019-12-01] MEDS: LISINOPRIL 10 MG TABLET PO SCH (08:16)
[2019-12-01 08:50] VITALS: BP 127/67
[2019-12-01] MEDS ORDERED: TUBERCULIN, PURIFIED PROTEIN DERIVATIVE 5 TU/0.1 ML SYRINGE ID ONE (12:15)
[2019-12-01 16:10] VITALS: BP 132/85
[2019-12-01] MEDS: OLANZapine 10 MG TABLET PO SCH (20:10)
[2019-12-02 08:00] VITALS: BP 122/73
[2019-12-02] MEDS: LISINOPRIL 10 MG TABLET PO SCH (09:06)
[2019-12-02 16:54] VITALS: BP 112/72
[2019-12-02] MEDS: OLANZapine 10 MG TABLET PO SCH (20:00)
[2019-12-03] MEDS: LISINOPRIL 10 MG TABLET PO SCH (08:10)
[2019-12-03 09:34] VITALS: BP 151/76
== END 2019-12-03 14:05 | disposition home or self-care (01) | DRG 750 ==
LOC: 3EC 16:30
PROVIDERS: ADMIT Psychiatry & Neurology Psychiatry; ATTEND Psychiatry & Neurology Psychiatry
DX: F25.9 Schizoaffective disorder, unspecified (principal); F41.9 Anxiety disorder, unspecified; K59.00 Constipation, unspecified; G47.00 Insomnia, unspecified; Z59.0 Homelessness; Z79.899 Other long term (current) drug therapy
CPT/HCPCS: 90686; 90732; 90749; G0008; G0009; Z7610